=== PATIENT | female | born 1950 | race Caucasian/White ===

== ENCOUNTER 2019-02-08 17:18 | Inpatient (IN) ==
--- NOTE | 2019-02-08 17:40 | Emergency Department Note ---
Disposition Clinical Impression: Tremor due to substance abuse Alcohol withdrawal syndrome Qualifiers: Complication of substance-induced condition: uncomplicated Qualified Code(s): F10.230 - Alcohol dependence with withdrawal, uncomplicated Alcoholic intoxication Qualifiers: Complication of substance-induced condition: uncomplicated Qualified Code(s): F10.920 - Alcohol use, unspecified with intoxication, uncomplicated Disposition: Admitted As Inpatient Condition: Fair Instructions: Alcohol Withdrawal (ED) Referrals: NONE,PCP [Primary Care Provider] - Forms: ED Satisfaction Letter Time of Disposition: 21:20 Alcohol HPI - General Chief Complaint: ED Alcohol Abuse Stated Complaint: etoh/detox Time Seen by Provider: 02/08/19 17:35 Source: patient - History of Present Illness HPI Narrative: Patient is a 69 year old F with pmhx of anxiety presents with c/o etoh withdrawal. patient states she shaking and the shaking has been going on for a few months, but recently gotten worse. Patient states she recently had 2 falls, one wednesday night and one Wednesday morning. Patient states she initially was unable to get up on her own, and had to wait until she had the strength to get up her own. She denies hitting head, but hit her hips and elbows. On both occassions she felt wobbly and weak and fell. Patient currently drinks 2 bottles of wine per day and was drunk on both occasions. She states Wednesday her significant worse and has gotten worse daily. Her daughter made her a doctor's appointment to see her doctor today, which is to see her doctor she told her to come to the ED. Patient states her shaking gets better when she keeps drinking. Four years ago she started to drink heavily prior to her passing away. Her last drink was 2pm today, she has had 5-6 glasses of wine already. Patient has been prescribed medication for headaches and anxiety but admits to frequently forgetting to take her medications. She states that about 2 weeks ago she stopped trying to take her medications. Patient also admits to coughing on occasion, nausea without vomiting, and diarrhea every other day. Patient denies fever, chills, abdominal pain, hemoptysis, hematochezia, or hematuria. Last Drink: hours (ago) Alcohol Type: Wine Chronic Alcohol Use: Yes - Related Data Home Medications Medication Instructions Recorded Confirmed Citalopram [CeleXA] 20 mg PO DAILY 02/08/19 02/08/19 Furosemide [Lasix] 20 mg PO DAILY PRN 02/08/19 02/08/19 Gabapentin [Neurontin] 300 mg PO TID 02/08/19 02/08/19 Ondansetron ODT [Zofran ODT] 4 mg SL Q6HR PRN 02/08/19 02/08/19 Topiramate [Topamax] 25 mg PO HS 02/08/19 02/08/19 traZODone [TraZODone] 50 mg PO HS 02/08/19 02/08/19 Allergies Allergy/AdvReac Type Severity Reaction Status Date / Time No Known Allergies Allergy Verified 02/08/19 17:21 Review of Systems: Constitutional: Denies Fever, Chills, , Dizziness admits Headache Respiratory: Denies Shortness of breath, Chronic cough, hemoptysis, Dyspnea at rest, or activity Cardiovascular: Denies Chest pain, Syncope, palpitations, admits Peripheral edema Gastrointestinal: Denies hematochezia, Abdominal pain, vomiting, admits nausea Genitourinary: Denies Painful urination, hematuria, urinary retention Endocrine: denies unintentional Significant weight changes Skin: Denies rashes, or unexplained bruising Past Medical History - Past Medical History Surgical history: Reports: orthopedic, other (screw in left ankle ), other (gastric bypass) Psychiatric history: Reports: anxiety, depression 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 Head: atraumatic, normocephalic. ENT: no oropharyngeal erythema, nares patent, mucous membranes moist, Neck: No thyromegaly appreciated. Neck supple no cervical lymphadenopathy. Resp: CTAB, no wheezing, rhonchi, or rhales. CV: RRR, Normal S1 and S2. No murmur, gallops, or rubs. GI/Abdominal exam: bowel sounds throughout, soft, non-tender, non- distended; no hepatosplenomegaly Skin: intact; no rashes, lesions, or bruising. Ext: No cyanosis +1 pitting edema LE b/l. pulses +2/4 bilaterally UE and LE. Neuro: no focal deficits, cooperative with exam, tremor increased with finger to nose test. mild resting tremor. strength 5/5 UE and LE b/l. sensation intact UE and LE b/l. Course Vital Signs Temperature 98.7 F 02/08/19 17:21 Pulse Rate 95 02/08/19 17:21 Respiratory Rate 20 02/08/19 17:21 Blood Pressure 120/71 02/08/19 17:21 O2 Sat by Pulse Oximetry 94 02/08/19 17:21 Temperature 98.7 F 02/08/19 18:49 Pulse Rate 96 02/08/19 20:25 Respiratory Rate 24 02/08/19 20:25 Blood Pressure 116/82 02/08/19 20:25 O2 Sat by Pulse Oximetry 95 02/08/19 20:25 Oxygen Delivery Oxygen Delivery Room Air Alcohol - MDM Narrative Medical decision making narrative: Patient is a 69-year-old female with history of EtOH abuse who presents today in alcohol withdrawal. Patient drinks 2 bottles of wine per day. She states her last drink was 2 PM today. She admits to recent falls, unsteadiness on her feet, weakness, decreased appetite, and tremors. After speaking with social work patient's PCP works in [facility] which has a substance abuse program. Patient has agreed to enroll in substance abuse program. Patient was given thiamine, and folic acid in the ED, IV fluids and placed on CIWA protocol. She has already been given 1 dose of Ativan for her alcohol withdrawal symptoms. Patient has been admitted for falls, unsteady gait due to EtOH intoxication and EtOH withdrawal. - Differential Diagnosis Differential Diagnosis: Likely: metabolic abnormality, alcohol withdrawal syndrome - Medical Records Medical records reviewed: Yes I reviewed the patient's medical records. - Lab Data Lab results reviewed: Yes I reviewed the patient's lab results. Result diagrams: 02/08/19 17:47 02/08/19 17:47 Lab Results 02/08/19 02/08/19 02/08/19 Range/Units 17:47 17:47 17:47 WBC 8.4 (4.3-11.1) K/mcL RBC 4.20 (3.82-4.97) M/mcL Hgb 13.6 (11.5-15.4) g/dL Hct 40.9 (35.3-44.9) % MCV 97.4 (83.0-100.0) fL MCH 32.4 (28.0-33.3) pg MCHC 33.3 (31.6-35.5) g/dL RDW 14.1 (11.5-14.5) % Plt Count 155 (140-400) K/mcL MPV 11.5 (9.4-12.4) fL Immature Gran % 1.9 (0-4) % Seg Neutrophils % 69.0 % Lymphocytes % 14.6 % Monocytes % 13.4 % Eosinophils % 0.4 % Basophils % 0.7 % Neutrophils # 5.8 (1.6-8.9) K/mcL Lymphocytes # 1.2 (0.6-4.6) K/mcL Monocytes # 1.1 (0.0-1.3) K/mcL Eosinophils # 0.0 (0.0-0.6) K/mcL Basophils # 0.1 (0.0-0.2) K/mcL PT 11.9 (9.4-12.1) Seconds INR 1.0 VBG pH (7.32-7.42) pH Units VBG pCO2 (41-51) mmHg VBG pO2 (25-50) mmHg VBG HCO3 (21-27) mEq/L Sodium 129 L (136-145) mEq/L Potassium 4.8 (3.5-5.1) mEq/L Chloride 93 L (98-107) mEq/L Carbon Dioxide 24 (23-29) mEq/L BUN 9 (8-23) mg/dL Creatinine 0.82 (0.60-1.20) mg/dL Est GFR ( Amer) > 60 (> 60) Est GFR (Non-Af Amer) > 60 (> 60) BUN/Creatinine Ratio 11 (6-26) Glucose 99 (70-105) mg/dL Calculated Osmolality 267 L (280-300) Calcium 8.5 L (8.6-10.3) mg/dL Magnesium 1.9 (1.6-2.6) mg/dL Total Bilirubin 1.8 H (0.3-1.0) mg/dL Direct Bilirubin 1.1 H (0.0-0.2) mg/dL Indirect Bilirubin 0.7 (0.0-1.2) mg/dL AST 327 H (13-39) Units/L ALT 157 H (7-52) Units/L Alkaline Phosphatase 561 H (34-104) Units/L Serum Total Protein 5.9 L (6.4-8.9) g/dL Albumin 3.1 L (3.5-5.7) g/dL Globulin 2.8 (2.4-3.5) g/dL Albumin/Globulin Ratio 1.1 (1.1-2.2) Beta-Hydroxybutyric Acd (0.02-0.27) mmol/L Ethyl Alcohol 78 H (Less than 10) mg/dL 02/08/19 02/08/19 Range/Units 17:47 18:03 WBC (4.3-11.1) K/mcL RBC (3.82-4.97) M/mcL Hgb (11.5-15.4) g/dL Hct (35.3-44.9) % MCV (83.0-100.0) fL MCH (28.0-33.3) pg MCHC (31.6-35.5) g/dL RDW (11.5-14.5) % Plt Count (140-400) K/mcL MPV (9.4-12.4) fL Immature Gran % (0-4) % Seg Neutrophils % % Lymphocytes % % Monocytes % % Eosinophils % % Basophils % % Neutrophils # (1.6-8.9) K/mcL Lymphocytes # (0.6-4.6) K/mcL Monocytes # (0.0-1.3) K/mcL Eosinophils # (0.0-0.6) K/mcL Basophils # (0.0-0.2) K/mcL PT (9.4-12.1) Seconds INR VBG pH 7.39 (7.32-7.42) pH Units VBG pCO2 38 L (41-51) mmHg VBG pO2 42 (25-50) mmHg VBG HCO3 23 (21-27) mEq/L Sodium (136-145) mEq/L Potassium (3.5-5.1) mEq/L Chloride (98-107) mEq/L Carbon Dioxide (23-29) mEq/L BUN (8-23) mg/dL Creatinine (0.60-1.20) mg/dL Est GFR ( Amer) (> 60) Est GFR (Non-Af Amer) (> 60) BUN/Creatinine Ratio (6-26) Glucose (70-105) mg/dL Calculated Osmolality (280-300) Calcium (8.6-10.3) mg/dL Magnesium (1.6-2.6) mg/dL Total Bilirubin (0.3-1.0) mg/dL Direct Bilirubin (0.0-0.2) mg/dL Indirect Bilirubin (0.0-1.2) mg/dL AST (13-39) Units/L ALT (7-52) Units/L Alkaline Phosphatase (34-104) Units/L Serum Total Protein (6.4-8.9) g/dL Albumin (3.5-5.7) g/dL Globulin (2.4-3.5) g/dL Albumin/Globulin Ratio (1.1-2.2) Beta-Hydroxybutyric Acd 0.26 (0.02-0.27) mmol/L Ethyl Alcohol (Less than 10) mg/dL - EKG Data EKG attestation: Yes I reviewed and interpreted this EKG. Attestation Statement - Attestation Attestation: I have seen this patient with the resident physician, I have personally evaluated this patient. I had reviewed the chart and document dictation by the resident physician and aM in agreement with the information documented by the resident physician. Please see documentation by the resident physician for complete chart including past medical history, family medical history, review of systems, current history and physical and laboratory and imaging studies. I was present for all procedures, provided direct supervision for all procedures, was present for the entirety of all procedures and provided direct guidance during the procedures. Please see documentation by the resident physic adrian for any procedures performed. I have reviewed all interpretations of EKGs, and reviewed all EKGs performed on patient's as well. I have also reviewed reports of imaging as provided by radiology. Patient presents to the emergency department with chief complaint of alcohol withdrawal and wanting detox. She is here because her family came to check on her and convinced her that she should be off alcohol. She drinks continuously throughout the day. She eats food every other day. She has never had a withdrawal seizure but states that if she stops drinking she becomes shaky in within a few hours. But she states she has not stop drinking ever for over 4 years. She is trying to get into a rehabilitation facility but has to be detoxed first before they will accept her primary care help try to arrange a detox facility. Upon arrival she has no vital sign suggestive of withdrawal she is however tremulous. She reports she has not drink alcohol about 3 hours. Physical examination is otherwise nonfocal, no confabulation, cranial nerves are intact lungs are clear heart is regular abdomen is soft and nontender there is no significant jaundice no petechiae of the skin. No focal neurologic findings. Full nontender range of motion of her neck. No thyromegaly. Basic laboratory studies demonstrated evidence of chronic alcohol abuse, mildly elevated bilirubin and elevated alkaline phosphorus mildly elevated transaminases. No evidence to suggest acute anemia or renal failure however she was hyponatremic at 129. Alkaline was 78. A CIWA scale was performed which was 9 which is borderline for requiring Ativan this increased up to 10-11 during her stay and she was given Ativan she was given IV fluids we also replaced thiamine and folic acid. She had a CT scan of her head to rule out intracranial hemorrhage because there was report of falls while intoxicated that showed no acute abnormality. Patient was admitted to the hospital for further evaluation and management of alcohol withdrawal.
[2019-02-08 18:04] LABS: Basophils # 0.1 K/mcL (0.0-0.2); Basophils % 0.7 %; Eosinophils % 0.4 %; Hematocrit 40.9 % (35.3-44.9); Hemoglobin 13.6 g/dL (11.5-15.4); Immature Granulocytes % 1.9 % (0-4); Lymphocytes # 1.2 K/mcL (0.6-4.6); Lymphocytes % 14.6 %; Mean Corpuscular HGB Conc 33.3 g/dL (31.6-35.5); Mean Corpuscular Hemoglobin 32.4 pg (28.0-33.3); Mean Corpuscular Volume 97.4 fL (83.0-100.0); Mean Platelet Volume 11.5 fL (9.4-12.4); Monocytes # 1.1 K/mcL (0.0-1.3); Monocytes % 13.4 %; Neutrophils # 5.8 K/mcL (1.6-8.9); Platelet Count 155 K/mcL (140-400); Red Cell Distribution Width 14.1 % (11.5-14.5); White Blood Count 8.4 K/mcL (4.3-11.1)
[2019-02-08 18:05] LABS: VBG HCO3 23 mEq/L (21-27); VBG PCO2 38 mmHg (41-51); VBG PH 7.39 pH Units (7.32-7.42); VBG PO2 42 mmHg (25-50)
[2019-02-08 18:11] LABS: Prothrombin Time 11.9 Seconds (9.4-12.1)
[2019-02-08 18:23] LABS: Alanine Aminotransferase 157 Units/L (7-52); Albumin 3.1 g/dL (3.5-5.7); Albumin/Globulin Ratio 1.1 (1.1-2.2); Alkaline Phosphatase 561 Units/L (34-104); Aspartate Amino Transferase 327 Units/L (13-39); BUN/Creatinine Ratio 11 (6-26); Bilirubin,Direct 1.1 mg/dL (0.0-0.2); Bilirubin,Indirect 0.7 mg/dL (0.0-1.2); Bilirubin,Total 1.8 mg/dL (0.3-1.0); Blood Urea Nitrogen 9 mg/dL (8-23); Calcium 8.5 mg/dL (8.6-10.3); Carbon Dioxide 24 mEq/L (23-29); Chloride 93 mEq/L (98-107); Ethanol 78 mg/dL (Less than 10); Globulin 2.8 g/dL (2.4-3.5); Glucose 99 mg/dL (70-105); Magnesium 1.9 mg/dL (1.6-2.6); Osmolality,Calculated 267 (280-300); Potassium 4.8 mEq/L (3.5-5.1); Sodium 129 mEq/L (136-145); Total Protein 5.9 g/dL (6.4-8.9); eGFR For African Americans > 60 (> 60); eGFR For Non-African Americans > 60 (> 60)
[2019-02-08] MEDS ORDERED: 0.9 % Sodium Chloride 1,000 ML IVC ONE (18:57)
[2019-02-08] MEDS ORDERED: Thiamine (B-1) 100 MG in 0.9 % Sodium Chloride 50 ML IVPB ONE (19:10)
[2019-02-08] MEDS ORDERED: Cyanocobalamin (B-12) 1,000 MCG TABLET PO ONE (19:30)
[2019-02-08] MEDS ORDERED: Folic Acid 1 MG TABLET PO STA (19:57)
[2019-02-08] MEDS ORDERED: *HR* LORazepam 2 MG/ML VIAL IVP ONE (20:27)
[2019-02-08] MEDS ORDERED: *HR* LORazepam 2 MG/ML VIAL IVP PRN (21:57)
[2019-02-08] MEDS ORDERED: *HR* Promethazine 25 MG/ML VIAL IVP PRN (21:57)
[2019-02-08] MEDS ORDERED: Ondansetron ODT 4 MG TAB.RAPDIS SL PRN (22:01)
--- NOTE | 2019-02-08 22:53 | Internal Med History&Physical ---
Date of Encounter: 02/08/19 Time of Encounter: 22:52 Internal Medicine - H&P: HPI Chief complaint: tremor Admitted From: Home Plans for Post Hospital Care: Home History of present illness: Bob Vazquez is a 69-year-old woman with depression and alcohol abuse who says in the last 3 years she has increased her drinking because her and became overly depressed. She says that she drinks 1-2 bottles of wine daily and frequently drinks in the morning or at any time she feels shaky. She says of recent she has been falling and has been very unsteady because of her intoxicated state and following withdrawal episodes. She told her daughter about this issue and her wanting to go to the emergency room but the daughter advised her not to bother her because she typically resolves it with another drink of alcohol. The patient then went to an outpatient provider who saw her and advised she come to the ER for assessment. In the ER she has been clinically stable but is notably shaky. Her last drink of alcohol was at 2 PM and alcohol blood testing tonight was elevated at 78. She was given 1 mg of lorazepam, a liter of fluids and a head CT was done which showed no acute abnormalities. Lab work remarkable for AST 327 and AST 157 with an alkaline phosphatase of 561. She is admitted for further care. She tells me she lives alone at home and used to work as an property management accountant. Family history is remarkable for a son with alcoholism as well. Vitals: Reviewed General: Well-developed woman lying in bed in no acute distress but notably tremulous. Skin: Warm and dry. HEENT: Moist mucous membranes. No conjunctivae pallor. Mild scleral icterus. Neck: No lymphadenopathy. No JVD. No carotid bruits. No palpable thyroid. Chest: Normal thoracic expansion. Normal breath sounds. Clear to auscultation. Heart: Normal S1 & S2; rhythmic. No rubs or murmurs. Abdomen: Non-distended, soft and non-tender to palpation. No peritoneal reaction. Extremities: No clubbing, cyanosis or edema. No calf tenderness. Normal distal pulses. Neurological: Awake, alert and oriented to person, place and time. No focal deficits. Psych: Affect appropriate. Assessment/Plan 1. Alcohol withdrawal: We will place on seizure, fall, aspiration precautions in addition to CIWA protocol to be followed. We will start chlordiazepoxide 50 mg by mouth over the course of 24 hours to keep her stable with lorazepam to be given as needed. Mineral/vitamin supplementation to be given by mouth which can be changed to IV if not tolerated. 2. Electrolyte imbalance: As evidenced by hyponatremia and hypochloremia likely secondary to alcohol intake and poor nutrition. Volume resuscitation with normal saline and will be rechecked. 3. Abnormal LFTs: The dissociation is typical for alcohol abuse. No clinical signs of alcoholic hepatitis however. I will order hepatitis viral panel and a liver ultrasound for evaluation. Monitor trend of LFTs. 4. Mood disorder: Continue citalopram and trazodone. Past Med Surg Social Fam HX - Past Medical History Medical history: arthritis, other Additional medical history: water retention, alcoholism Psychiatric history: anxiety, depression - Past Surgical History Surgical History: orthopedic, other (screw in left ankle ), other (gastric bypass) Additional surgical history: foot, gastric bypass, collar cone, elbow - Social History Smoking Status: Never smoker Alcohol use: heavy, recent Drug use: none Internal Medicine - H&P: Meds Citalopram [CeleXA] 20 mg PO DAILY 02/08/19 [History] Furosemide [Lasix] 20 mg PO DAILY PRN 02/08/19 [History] Gabapentin [Neurontin] 300 mg PO TID 02/08/19 [History] Ondansetron ODT [Zofran ODT] 4 mg SL Q6HR PRN 02/08/19 [History] Topiramate [Topamax] 25 mg PO HS 02/08/19 [History] traZODone [TraZODone] 50 mg PO HS 02/08/19 [History] Allergy/AdvReac Type Severity Reaction Status Date / Time No Known Allergies Allergy Verified 02/08/19 17:21 All Systems PM: A 10-system review of systems was performed and is negative for pertinent findings except as documented above in the HPI. - Constitutional Vitals: Temp Pulse Resp BP Pulse Ox 98.7 F 101 24 113/63 96 02/08/19 18:49 02/08/19 22:45 02/08/19 22:45 02/08/19 22:45 02/08/19 22:45 Exam: . Internal Med - H&P Results - Labs CBC & Chem 7: 02/08/19 17:47 02/08/19 17:47 Labs: Short CBC 02/08/19 Range/Units 17:47 WBC 8.4 (4.3-11.1) K/mcL Hgb 13.6 (11.5-15.4) g/dL Hct 40.9 (35.3-44.9) % Plt Count 155 (140-400) K/mcL Neutrophils # 5.8 (1.6-8.9) K/mcL BMP 02/08/19 17:47 Sodium 129 L Potassium 4.8 Chloride 93 L Carbon Dioxide 24 BUN 9 Creatinine 0.82 Glucose 99 Calcium 8.5 L Liver Function 02/08/19 Range/Units 17:47 Total Bilirubin 1.8 H (0.3-1.0) mg/dL Direct Bilirubin 1.1 H (0.0-0.2) mg/dL AST 327 H (13-39) Units/L ALT 157 H (7-52) Units/L Alkaline Phosphatase 561 H (34-104) Units/L Albumin 3.1 L (3.5-5.7) g/dL - ABG Interpretation ABG results: 02/08/19 18:03 VBG pH 7.39 VBG pCO2 38 L VBG pO2 42 VBG HCO3 23 - Impressions ITS Impressions Head CT 02/08/19 19:32 IMPRESSION: No acute intracranial abnormality. D/ / Elías Hanson MD / Elías Hanson MD Interpreting Provider: Elías Hanson MD - Time Spent With Patient Total time spent is greater than 50% in coordination of care (as documented) at patient's floor/unit and/or counseling patient:
[2019-02-08] MEDS: Topiramate 25 MG TABLET PO SCH (23:52)
[2019-02-08] MEDS: traZODone 50 MG TABLET PO SCH (23:52)
[2019-02-08] MEDS: 0.9 % Sodium Chloride 1,000 ML IVC SCH (23:53)
[2019-02-09] MEDS: 0.9 % Sodium Chloride 1,000 ML IVC SCH (05:31)
[2019-02-09 05:51] LABS: BUN/Creatinine Ratio 12 (6-26); Blood Urea Nitrogen 9 mg/dL (8-23); Calcium 7.8 mg/dL (8.6-10.3); Carbon Dioxide 27 mEq/L (23-29); Chloride 100 mEq/L (98-107); Glucose 94 mg/dL (70-105); Magnesium 1.8 mg/dL (1.6-2.6); Osmolality,Calculated 276 (280-300); Phosphorous 2.5 mg/dL (2.7-4.5); Potassium 4.7 mEq/L (3.5-5.1); Sodium 134 mEq/L (136-145); eGFR For African Americans > 60 (> 60); eGFR For Non-African Americans > 60 (> 60)
[2019-02-09 05:52] LABS: Albumin 2.6 g/dL (3.5-5.7); Albumin/Globulin Ratio 1.1 (1.1-2.2); Bilirubin,Direct 1.4 mg/dL (0.0-0.2); Bilirubin,Total 2.4 mg/dL (0.3-1.0); Globulin 2.3 g/dL (2.4-3.5); Total Protein 4.9 g/dL (6.4-8.9)
[2019-02-09 06:38] LABS: Hepatitis B Surface Antigen Nonreactive (Nonreactive)
[2019-02-09 07:07] LABS: Hepatitis A Antibody IgM Nonreactive (Nonreactive); Hepatitis B Core IgM Nonreactive (Nonreactive); Hepatitis C Virus Antibody Nonreactive (Nonreactive)
[2019-02-09 08:43] LABS: VBG Ionized Calcium 1.13 mmol/L (1.15-1.35)
[2019-02-09] MEDS: Folic Acid 1 MG TABLET PO SCH (09:40)
[2019-02-09] MEDS: Thiamine (B-1) 100 MG TABLET PO SCH (09:40)
[2019-02-09] MEDS: Vitamin B Complex/Vit C/Vit E 1 EACH TABLET PO SCH (09:40)
[2019-02-09] MEDS: Gabapentin 300 MG CAPSULE PO SCH ×3 (09:40→21:52)
[2019-02-09] MEDS ORDERED: *HR* LORazepam 2 MG/ML VIAL IVP PRN ×3 (09:55)
[2019-02-09] MEDS ORDERED: Calcium Gluconate 1gm/50mL 1 GM/50 ML BAG IVPB ONE (11:00)
[2019-02-09] MEDS: Ibuprofen 600 MG TABLET PO PRN (11:33)
--- NOTE | 2019-02-09 14:29 | Internal Med Progress Note ---
Hospitalist Progress Note - Encounter Date of Encounter: 02/09/19 Time of Encounter: 14:28 - Subjective Interval History: Patient seen and examined. No acute events overnight. Patient still has tremor. No scoring on CIWA as of yet. Patient denies dyspnea, chest pain. - Exam Vitals: Temp Pulse Resp BP Pulse Ox 98.7 F 82 16 133/85 96 02/09/19 12:02/09/19 12:02/09/19 12:02/09/19 12:02/09/19 12:26 Exam: Vitals: Reviewed General: Well-developed woman lying in bed in no acute distress but notably tremulous. Skin: Warm and dry. HEENT: Moist mucous membranes. No conjunctivae pallor. Mild scleral icterus. Neck: No lymphadenopathy. No JVD. No carotid bruits. No palpable thyroid. Chest: Normal thoracic expansion. Normal breath sounds. Clear to auscultation. Heart: Normal S1 & S2; rhythmic. No rubs or murmurs. Abdomen: Non-distended, soft and non-tender to palpation. No peritoneal reaction. Extremities: No clubbing, cyanosis or edema. No calf tenderness. Normal distal pulses. Neurological: generalized tremor present not associated with movement or rest Psych: Affect appropriate - Assessment and Plan (1) Alcohol withdrawal syndrome Current Visit: Yes Status: Acute Assessment and Plan: Significant outpatient alcohol use; high risk for withdrawal Patient currently with tremor Plan: CIWA; monitor for signs of alcohol withdrawal; d/c librium (2) Hypocalcemia Current Visit: Yes Status: Acute Assessment and Plan: Ionized Ca low on admission likely due to poor nutrition Replace and monitor (3) Hypophosphatemia Current Visit: Yes Status: Acute Assessment and Plan: Low on admission likely 2/2 poor nutrition Replace and monitor (4) Malnutrition Current Visit: Yes Status: Acute Assessment and Plan: Likely contributing to above electrolyte disturbances Consult dietary (5) Mood disorder Current Visit: Yes Status: Acute Assessment and Plan: continue patients citalopram and trazodone (6) Abnormal LFTs Current Visit: Yes Status: Acute Assessment and Plan: Elevated LFTs typical for alcohol abuse Hepatitis panel negative Plan: liver ultrasound trend LFTs - Time Spent with Patient Total time spent is greater than 50% in coordination of care (as documented) at patient's floor/unit and/or counseling patient: 35 minutes Plan of Care Discussed with: patient Internal Medicine: Result - Labs CBC & Chem 7: 02/08/19 17:47 02/09/19 04:19 Labs: Short CBC 02/08/19 Range/Units 17:47 WBC 8.4 (4.3-11.1) K/mcL Hgb 13.6 (11.5-15.4) g/dL Hct 40.9 (35.3-44.9) % Plt Count 155 (140-400) K/mcL Neutrophils # 5.8 (1.6-8.9) K/mcL BMP 02/08/19 02/09/19 17:47 04:19 Sodium 129 L 134 L Potassium 4.8 4.7 Chloride 93 L 100 Carbon Dioxide 24 27 BUN 9 9 Creatinine 0.82 0.76 Glucose 99 94 Calcium 8.5 L 7.8 L Liver Function 02/08/19 02/09/19 Range/Units 17:47 04:19 Total Bilirubin 1.8 H 2.4 H (0.3-1.0) mg/dL Direct Bilirubin 1.1 H 1.4 H (0.0-0.2) mg/dL AST 327 H 231 H (13-39) Units/L ALT 157 H 121 H (7-52) Units/L Alkaline Phosphatase 561 H 447 H (34-104) Units/L Albumin 3.1 L 2.6 L (3.5-5.7) g/dL - ABG Interpretation ABG results: PT/INR, D-dimer PT 11.9 Seconds (9.4-12.1) 02/08/19 17:47 - Impressions Impressions Head CT 02/08/19 19:32 IMPRESSION: No acute intracranial abnormality. D/ / Elías Hanson MD / Elías Hanson MD Interpreting Provider: Elías Hanson MD Liver Ultrasound 02/09/19 09:33 IMPRESSION: 1. Hepatic steatosis. 2. Gallbladder is not visualized. D/ / Felicia Foster MD / Felicia Foster MD Interpreting Provider: Felicia Foster MD Consult Discharge Plan - Plan Referrals: NONE,PCP [Primary Care Provider] - (1) Alcohol withdrawal syndrome Qualifiers: Complication of substance-induced condition: uncomplicated Qualified Code(s): F10.230 - Alcohol dependence with withdrawal, uncomplicated
[2019-02-09] MEDS: traZODone 50 MG TABLET PO SCH (21:52)
[2019-02-09] MEDS: Topiramate 25 MG TABLET PO SCH (21:52)
[2019-02-10 02:11] LABS: Hematocrit 35.5 % (35.3-44.9); Mean Corpuscular HGB Conc 32.4 g/dL (31.6-35.5); Mean Corpuscular Hemoglobin 32.7 pg (28.0-33.3); Mean Corpuscular Volume 100.9 fL (83.0-100.0); Mean Platelet Volume 11.9 fL (9.4-12.4); Platelet Count 105 K/mcL (140-400); Red Blood Count 3.52 M/mcL (3.82-4.97); Red Cell Distribution Width 14.6 % (11.5-14.5); White Blood Count 7.2 K/mcL (4.3-11.1)
[2019-02-10 02:12] LABS: Hemoglobin 11.5 g/dL (11.5-15.4)
[2019-02-10 02:15] LABS: VBG Ionized Calcium 1.16 mmol/L (1.15-1.35)
[2019-02-10 02:35] LABS: Alanine Aminotransferase 114 Units/L (7-52); Albumin 2.5 g/dL (3.5-5.7); Albumin/Globulin Ratio 1.1 (1.1-2.2); Alkaline Phosphatase 428 Units/L (34-104); Aspartate Amino Transferase 210 Units/L (13-39); BUN/Creatinine Ratio 15 (6-26); Bilirubin,Total 2.4 mg/dL (0.3-1.0); Blood Urea Nitrogen 12 mg/dL (8-23); Calcium 8.2 mg/dL (8.6-10.3); Carbon Dioxide 25 mEq/L (23-29); Chloride 104 mEq/L (98-107); Globulin 2.3 g/dL (2.4-3.5); Glucose 92 mg/dL (70-105); Osmolality,Calculated 279 (280-300); Phosphorous 2.8 mg/dL (2.7-4.5); Potassium 4.1 mEq/L (3.5-5.1); Sodium 135 mEq/L (136-145); Total Protein 4.8 g/dL (6.4-8.9); eGFR For African Americans > 60 (> 60); eGFR For Non-African Americans > 60 (> 60)
[2019-02-10] MEDS: *HR* Enoxaparin 40 MG/0.4 ML SYRINGE SQ SCH (05:47)
[2019-02-10] MEDS: Folic Acid 1 MG TABLET PO SCH (07:31)
[2019-02-10] MEDS: Thiamine (B-1) 100 MG TABLET PO SCH (07:31)
[2019-02-10] MEDS: Gabapentin 300 MG CAPSULE PO SCH ×3 (07:31→20:48)
[2019-02-10] MEDS: Vitamin B Complex/Vit C/Vit E 1 EACH TABLET PO SCH (07:31)
--- NOTE | 2019-02-10 17:26 | Internal Med Progress Note ---
Hospitalist Progress Note - Encounter Date of Encounter: 02/10/19 Time of Encounter: 17:24 - Subjective Interval History: No acute events overnight. Patient stats she feels well. Has not scored on CIWA so far this admission. - Exam Vitals: Temp Pulse Resp BP Pulse Ox 98.1 F 85 16 129/82 96 02/10/19 16:25 02/10/19 16:25 02/10/19 16:25 02/10/19 16:25 02/10/19 16:25 Exam: Vitals: Reviewed General: Well-developed woman lying in bed in no acute distress but notably tremulous. Skin: Warm and dry. HEENT: Moist mucous membranes. No conjunctivae pallor. Mild scleral icterus. Neck: No lymphadenopathy. No JVD. No carotid bruits. No palpable thyroid. Chest: Normal thoracic expansion. Normal breath sounds. Clear to auscultation. Heart: Normal S1 & S2; rhythmic. No rubs or murmurs. Abdomen: Non-distended, soft and non-tender to palpation. No peritoneal reaction. Extremities: No clubbing, cyanosis or edema. No calf tenderness. Normal distal pulses. Neurological: generalized tremor present not associated with movement or rest Psych: Affect appropriate - Assessment and Plan (1) Alcohol withdrawal syndrome Current Visit: Yes Status: Acute Assessment and Plan: Significant outpatient alcohol use; high risk for withdrawal Patient currently with tremor No PRN benzos yet Plan: CIWA; monitor for signs of alcohol withdrawal (2) Hypocalcemia Current Visit: Yes Status: Resolved Assessment and Plan: Low on admission likely 2/2 poor nutrition Resolved Monitor (3) Hypophosphatemia Current Visit: Yes Status: Resolved Assessment and Plan: Low on admission likely 2/2 poor nutrition Resolved Monitor (4) Malnutrition Current Visit: Yes Status: Acute Assessment and Plan: Likely contributing to above electrolyte disturbances Consult dietary (5) Mood disorder Current Visit: Yes Status: Acute Assessment and Plan: continue patients citalopram and trazodone (6) Abnormal LFTs Current Visit: Yes Status: Acute Assessment and Plan: Elevated LFTs typical for alcohol abuse Hepatitis panel negative Plan: liver ultrasound trend LFTs - Time Spent with Patient Total time spent is greater than 50% in coordination of care (as documented) at patient's floor/unit and/or counseling patient: 30 minutes Internal Medicine: Result - Labs CBC & Chem 7: 02/10/19 01:56 02/10/19 01:56 Labs: Short CBC 02/10/19 Range/Units 01:56 WBC 7.2 (4.3-11.1) K/mcL Hgb 11.5 D (11.5-15.4) g/dL Hct 35.5 (35.3-44.9) % Plt Count 105 L (140-400) K/mcL BMP 02/10/19 01:56 Sodium 135 L Potassium 4.1 Chloride 104 Carbon Dioxide 25 BUN 12 Creatinine 0.81 Glucose 92 Calcium 8.2 L Liver Function 02/10/19 Range/Units 01:56 Total Bilirubin 2.4 H (0.3-1.0) mg/dL AST 210 H (13-39) Units/L ALT 114 H (7-52) Units/L Alkaline Phosphatase 428 H (34-104) Units/L Albumin 2.5 L (3.5-5.7) g/dL - ABG Interpretation ABG results: PT/INR, D-dimer PT 11.9 Seconds (9.4-12.1) 02/08/19 17:47 Consult Discharge Plan - Plan Referrals: NONE,PCP [Primary Care Provider] - (1) Alcohol withdrawal syndrome Qualifiers: Complication of substance-induced condition: uncomplicated Qualified Code(s): F10.230 - Alcohol dependence with withdrawal, uncomplicated (4) Malnutrition Qualifiers: Malnutrition type: protein-calorie malnutrition Protein-calorie malnutrition severity: severe Qualified Code(s): E43 - Unspecified severe protein-calorie malnutrition
[2019-02-10] MEDS: Ibuprofen 600 MG TABLET PO PRN (17:59)
[2019-02-10] MEDS: traZODone 50 MG TABLET PO SCH (20:48)
[2019-02-10] MEDS: Topiramate 25 MG TABLET PO SCH (20:48)
[2019-02-11] MEDS: *HR* Enoxaparin 40 MG/0.4 ML SYRINGE SQ SCH (05:19)
[2019-02-11 05:47] LABS: Hematocrit 40.8 % (35.3-44.9); Mean Corpuscular HGB Conc 31.9 g/dL (31.6-35.5); Mean Corpuscular Hemoglobin 32.7 pg (28.0-33.3); Mean Corpuscular Volume 102.5 fL (83.0-100.0); Platelet Count 109 K/mcL (140-400); Red Blood Count 3.98 M/mcL (3.82-4.97); Red Cell Distribution Width 14.7 % (11.5-14.5); White Blood Count 6.5 K/mcL (4.3-11.1)
[2019-02-11 05:49] LABS: VBG Ionized Calcium 1.25 mmol/L (1.15-1.35)
[2019-02-11 06:05] LABS: Alanine Aminotransferase 115 Units/L (7-52); Albumin 2.8 g/dL (3.5-5.7); Albumin/Globulin Ratio 1.1 (1.1-2.2); Alkaline Phosphatase 425 Units/L (34-104); Aspartate Amino Transferase 200 Units/L (13-39); BUN/Creatinine Ratio 14 (6-26); Bilirubin,Total 2.4 mg/dL (0.3-1.0); Blood Urea Nitrogen 11 mg/dL (8-23); Calcium 8.6 mg/dL (8.6-10.3); Carbon Dioxide 27 mEq/L (23-29); Chloride 107 mEq/L (98-107); Globulin 2.6 g/dL (2.4-3.5); Glucose 94 mg/dL (70-105); Osmolality,Calculated 289 (280-300); Potassium 3.6 mEq/L (3.5-5.1); Sodium 140 mEq/L (136-145); Total Protein 5.4 g/dL (6.4-8.9); eGFR For African Americans > 60 (> 60); eGFR For Non-African Americans > 60 (> 60)
[2019-02-11 06:50] VITALS: BP 135/81
[2019-02-11] MEDS: Gabapentin 300 MG CAPSULE PO SCH (08:03)
[2019-02-11] MEDS: Thiamine (B-1) 100 MG TABLET PO SCH (08:03)
[2019-02-11] MEDS: Folic Acid 1 MG TABLET PO SCH (08:03)
[2019-02-11] MEDS: Vitamin B Complex/Vit C/Vit E 1 EACH TABLET PO SCH (08:03)
--- NOTE | 2019-02-11 09:49 | Discharge Summary ---
- NOTES TO OUTPATIENT PROVIDER Notes to Outpatient Provider: Patient may need assistance arranging outpatient alcohol rehab Date of Encounter: 02/11/19 Time of Encounter: 09:47 - Discharge Diagnosis (1) Alcohol withdrawal syndrome Priority: Primary Status: Acute Qualifiers: Complication of substance-induced condition: uncomplicated Qualified Code(s): F10.230 - Alcohol dependence with withdrawal, uncomplicated (2) Hypocalcemia Priority: Secondary Status: Resolved (3) Hypophosphatemia Priority: Secondary Status: Resolved (4) Malnutrition Priority: Secondary Status: Acute Qualifiers: Malnutrition type: protein-calorie malnutrition Protein-calorie malnutrition severity: severe Qualified Code(s): E43 - Unspecified severe protein-calorie malnutrition (5) Mood disorder Priority: Secondary Status: Acute (6) Abnormal LFTs Priority: Secondary Status: Acute Hospital course: Ms. Vazquez is a 69 year old female with PMH Of mood disorder and alcohol abuse. Patient presented to the ED intoxicated and shaking. Patient has strong history of 2-3 bottles of wine daily for the past 3 years since her . Patient notes that when she does not drink, she shakes. During admission, patient was given single dose of ativan in ED and one dose of librium on the floor. She was placed on CIWA protocol but did not require any PRN doses of ativan. Her vital signs remained stable. After 3 nights of monitoring, patient did not show any signs of withdrawal. She continue to have tremor but all vital signs were stable. Patient may have essential tremor, although she denies any family history of tremor. She declined inpatient drug rehab opting for outpatient rehab instead. Patient was ambulatory but felt she was a little weak from being in bed for so many days. Patient was clinically stable on day of discharge. Home health was ordered for evaluation of needs. OP physician will need to determine if patient has essential tremor and whether she would benefit from treatment. She was provided info for outpatient rehab and may require assistance arranging this. Discharge discussed with: patient - Time Spent with Patient Total time spent providing and/or coordinating discharge services: 35 minutes - Discharge Medications Prescriptions: New Gabapentin [Neurontin] 300 mg PO TID capsule Continued Ondansetron ODT [Zofran ODT] 4 mg SL Q6HR PRN PRN Reason: Nausea traZODone [TraZODone] 50 mg PO HS PRN PRN Reason: Sleep Topiramate [Topamax] 25 mg PO HS Furosemide [Lasix] 20 mg PO DAILY PRN PRN Reason: Edema Citalopram [CeleXA] 20 mg PO DAILY Cholecalciferol (Vitamin D3) [Vitamin D3] 1,000 units PO DAILY Cyanocobalamin (Vitamin B-12) [Vitamin B-12] 1,000 mcg PO DAILY Gabapentin [Neurontin] 300 mg PO TID Multivitamin [Daily Multiple Vitamin] 1 tab PO DAILY Home Medications: Citalopram [CeleXA] 20 mg PO DAILY 02/08/19 [History] Furosemide [Lasix] 20 mg PO DAILY PRN 02/08/19 [History] Ondansetron ODT [Zofran ODT] 4 mg SL Q6HR PRN 02/08/19 [History] Topiramate [Topamax] 25 mg PO HS 02/08/19 [History] traZODone [TraZODone] 50 mg PO HS PRN 02/08/19 [History] Cholecalciferol (Vitamin D3) [Vitamin D3] 1,000 units PO DAILY 02/09/19 [History] Cyanocobalamin (Vitamin B-12) [Vitamin B-12] 1,000 mcg PO DAILY 02/09/19 [History] Gabapentin [Neurontin] 300 mg PO TID 02/09/19 [History] Multivitamin [Daily Multiple Vitamin] 1 tab PO DAILY 02/09/19 [History] Gabapentin [Neurontin] 300 mg PO TID capsule 02/11/19 [Rx] Allergies/Adverse Reactions: Allergy/AdvReac Type Severity Reaction Status Date / Time No Known Allergies Allergy Verified 02/09/19 22:22 Date of admission: 02/09/19 15:50 Primary care physician: PCP NONE Consults: 02/08/19 21:57 Consult to [employer] Tender [CONS] Routine Reason for SW Consult: depression and alcohol abuse 02/09/19 14:50 Consult to Nutrition [CONS] Routine Comment: Consulting Provider: NUTRITION Reason for Dietary Consult: Diet Education Discharging clinician: Lillie Olmos Anticipated date of discharge: 02/11/19 - Constitutional Vitals: Temp Pulse Resp BP Pulse Ox 98.7 F 67 18 135/81 96 02/11/19 06:45 02/11/19 06:45 02/11/19 06:45 02/11/19 06:45 02/11/19 06:45 General appearance: Present: A&O X 3, no acute distress, answers questions appropriately Exam: Vitals: Reviewed General: Well-developed woman lying in bed in no acute distress but notably tremulous. Skin: Warm and dry. HEENT: Moist mucous membranes. No conjunctivae pallor. Mild scleral icterus. Neck: No lymphadenopathy. No JVD. No carotid bruits. No palpable thyroid. Chest: Normal thoracic expansion. Normal breath sounds. Clear to auscultation. Heart: Normal S1 & S2; rhythmic. No rubs or murmurs. Abdomen: Non-distended, soft and non-tender to palpation. No peritoneal reaction. Extremities: No clubbing, cyanosis or edema. No calf tenderness. Normal distal pulses. Neurological: generalized tremor present not associated with movement or rest Psych: Affect appropriate - Patient Status Disposition: Home Health Service Condition: Good Functional capacity at discharge: uses cane/walker Overall status at discharge: patient is back to baseline - Discharge Instructions Follow Up With: NONE,PCP [Primary Care Provider] - - Diet and Activity Activity: resume usual activities as tolerated Diet: advance to your usual diet
--- NOTE | 2019-02-11 09:56 | Physician Discharge Referral ---
Home Health/Hosp Referral Info Transfer to: Home Health Provider in Charge Post Discharge: PCP - Diagnosis (1) Alcohol withdrawal syndrome Priority: Primary Status: Resolved (2) Hypocalcemia Priority: Secondary Status: Resolved (3) Hypophosphatemia Priority: Secondary Status: Resolved (4) Malnutrition Priority: Secondary Status: Acute (5) Mood disorder Priority: Secondary Status: Chronic (6) Abnormal LFTs Priority: Secondary Status: Acute - Respiratory Orders Smoking Cessation: Smoking cessation has been advised. For more information, call the [place] Tobacco Quit Line at 7-518-FCQI-NOW. - Diet/Nutrition Diet/Nutrition Orders: Regular - Activity Activity Orders: Up ad ramiro - Services Needed Following services are medically necessary services: Nursing, Physical Therapy, Occupational Therapy - Transfer Medications Home Medications: Citalopram [CeleXA] 20 mg PO DAILY 02/08/19 [History] Furosemide [Lasix] 20 mg PO DAILY PRN 02/08/19 [History] Ondansetron ODT [Zofran ODT] 4 mg SL Q6HR PRN 02/08/19 [History] Topiramate [Topamax] 25 mg PO HS 02/08/19 [History] traZODone [TraZODone] 50 mg PO HS PRN 02/08/19 [History] Cholecalciferol (Vitamin D3) [Vitamin D3] 1,000 units PO DAILY 02/09/19 [History] Cyanocobalamin (Vitamin B-12) [Vitamin B-12] 1,000 mcg PO DAILY 02/09/19 [History] Gabapentin [Neurontin] 300 mg PO TID 02/09/19 [History] Multivitamin [Daily Multiple Vitamin] 1 tab PO DAILY 02/09/19 [History] Gabapentin [Neurontin] 300 mg PO TID capsule 02/11/19 [Rx] Allergies/Adverse Reactions: Allergy/AdvReac Type Severity Reaction Status Date / Time No Known Allergies Allergy Verified 02/09/19 22:22 Certification: Further, I certify that my clinical findings support that this patient is homebound (i.e. absences from home require considerable and taxing effort and are for medical reasons or hoahaoism services or infrequently or short duration when for other reasons) because: Homebound Reason: Leaving home requires considerable and taxing effort due to condition Attestation: My signature below is to certify that this patient is under my care and that I, or nurse practitioner, or a physician's acute care assistant working with me, has a [id number] encounter with this patient.
== END 2019-02-11 11:40 | disposition home health service (06) | DRG 896 ==
LOC: EMEROOARM 17:18 → 2ANU 17:18 → SUATTDRO 22:36 → 2ANU 22:55
PROVIDERS: ADMIT Internal Medicine; ATTEND Family Medicine

== ENCOUNTER 2019-03-23 16:20 | Inpatient (IN) ==
[2019-03-23] MEDS ORDERED: Isovue-370 500 ML BOTTLE IVP ONE (17:09)
[2019-03-23 17:36] LABS: Basophils # 0.1 K/mcL (0.0-0.2); Basophils % 0.5 %; Eosinophils # 0.2 K/mcL (0.0-0.6); Eosinophils % 0.6 %; Hematocrit 32.5 % (35.3-44.9); Hemoglobin 11.4 g/dL (11.5-15.4); Immature Granulocytes % 4.2 % (0-4); Lymphocytes # 2.1 K/mcL (0.6-4.6); Lymphocytes % 8.6 %; Mean Corpuscular HGB Conc 35.1 g/dL (31.6-35.5); Mean Corpuscular Hemoglobin 36.2 pg (28.0-33.3); Mean Corpuscular Volume 103.2 fL (83.0-100.0); Mean Platelet Volume 12.3 fL (9.4-12.4); Monocytes # 1.7 K/mcL (0.0-1.3); Monocytes % 7.1 %; Platelet Count 283 K/mcL (140-400); Red Blood Count 3.15 M/mcL (3.82-4.97); Red Cell Distribution Width 16.6 % (11.5-14.5); White Blood Count 24.1 K/mcL (4.3-11.1)
[2019-03-23 17:44] LABS: INR 1.6
[2019-03-23 17:57] LABS: Alanine Aminotransferase 51 Units/L (7-52); Albumin 2.4 g/dL (3.5-5.7); Albumin/Globulin Ratio 0.8 (1.1-2.2); Alkaline Phosphatase 434 Units/L (34-104); Aspartate Amino Transferase 157 Units/L (13-39); BUN/Creatinine Ratio 14 (6-26); Bilirubin,Direct 5.6 mg/dL (0.0-0.2); Bilirubin,Indirect 3.8 mg/dL (0.0-1.0); Bilirubin,Total 9.4 mg/dL (0.3-1.0); Blood Urea Nitrogen 21 mg/dL (8-23); Carbon Dioxide 26 mEq/L (23-29); Chloride 90 mEq/L (98-107); Ethanol < 10 mg/dL (Less than 10); Globulin 2.9 g/dL (2.4-3.5); Glucose 89 mg/dL (70-105); Osmolality,Calculated 264 (280-300); Potassium 4.5 mEq/L (3.5-5.1); Sodium 126 mEq/L (136-145); Total Protein 5.3 g/dL (6.4-8.9); eGFR For African Americans 43 (> 60); eGFR For Non-African Americans 36 (> 60)
[2019-03-23 19:59] LABS: Bilirubin,Urine Large (Negative); Blood,Urine Negative (Negative); Clarity,Urine Cloudy (Clear); Color,Urine Orange (Yellow); Glucose,Urine (UA) Normal (Normal); Ketones,Urine Negative (Negative); Leukocyte Esterase,Urine Moderate (Negative); Nitrite,Urine Positive (Negative); PH,Urine 5.5 pH Units (5.0-8.0); Protein,Urine Negative (Neg-Trace); Specific Gravity,Urine 1.018 (1.010-1.025); Urobilinogen,Urine >=8.0 mg/dL (Normal)
[2019-03-23 20:01] LABS: Bacteria,Urine Many per hpf (None-Few); Hyaline Casts,Urine None Seen per lpf (None-Few); Squamous Epithelial Cell,Urine Many per lpf (None-Few); WBC,Urine 50-100 per hpf (0-3)
[2019-03-23 20:05] LABS: Amphetamine Screen,Urine Negative ng/mL (Cutoff=1000); Barbiturate Screen,Urine Negative ng/mL (Cutoff=200); Benzodiazepines Screen,Urine Negative ng/mL (Cutoff=200); Cannabinoid Screen,Urine Negative ng/mL (Cutoff = 50); Cocaine Screen,Urine Negative ng/mL (Cutoff= 300); Opiate Screen,Urine Negative ng/mL (Cutoff=300); Phencyclidine Screen,Urine Negative ng/mL (Cutoff=25)
[2019-03-23 20:16] LABS: Amorphous Sediment,Urine Few (Few)
[2019-03-23] MEDS ORDERED: 0.9 % Sodium Chloride 500 ML IVC ONE ×2 (20:17→20:30)
[2019-03-23] MEDS ORDERED: cefTRIAXone 1,000 MG in Water for inj. (sterile) 10 ML IVP ONE (21:26)
[2019-03-23] MEDS ORDERED: traZODone 50 MG TABLET PO PRN (21:53)
[2019-03-23] MEDS ORDERED: Ondansetron ODT 4 MG TAB.RAPDIS SL PRN (21:53)
[2019-03-23] MEDS ORDERED: Ondansetron 4 MG/2 ML VIAL IVP PRN (21:57)
[2019-03-23] MEDS: Topiramate 25 MG TABLET PO SCH (22:38)
[2019-03-23] MEDS: Albumin 25% 25gram/100mL 25 GM/100 ML IV.SOLN IVPB SCH (22:38)
[2019-03-23] MEDS: *HR* Heparin 5,000 UNIT/ML VIAL SQ SCH (22:38)
[2019-03-23] MEDS: rOPINIRole 0.25 MG TABLET PO SCH (22:38)
[2019-03-23] MEDS ORDERED: *HR* LORazepam 2 MG/ML VIAL IVP PRN ×3 (22:47)
[2019-03-23] MEDS ORDERED: *HR* Promethazine 25 MG/ML VIAL IVP PRN (22:47)
[2019-03-24] MEDS: Albumin 25% 25gram/100mL 25 GM/100 ML IV.SOLN IVPB SCH (00:21)
[2019-03-24] MEDS: *HR* Heparin 5,000 UNIT/ML VIAL SQ SCH ×3 (05:37→22:28)
[2019-03-24 06:29] LABS: Basophils # 0.1 K/mcL (0.0-0.2); Basophils % 0.5 %; Eosinophils # 0.2 K/mcL (0.0-0.6); Eosinophils % 1.4 %; Hematocrit 25.8 % (35.3-44.9); Immature Granulocytes % 3.1 % (0-4); Lymphocytes # 0.9 K/mcL (0.6-4.6); Lymphocytes % 6.4 %; Mean Corpuscular HGB Conc 34.1 g/dL (31.6-35.5); Mean Corpuscular Hemoglobin 36.1 pg (28.0-33.3); Mean Corpuscular Volume 105.7 fL (83.0-100.0); Mean Platelet Volume 12.1 fL (9.4-12.4); Monocytes % 6.7 %; Platelet Count 166 K/mcL (140-400); Red Blood Count 2.44 M/mcL (3.82-4.97); Red Cell Distribution Width 16.7 % (11.5-14.5); Segmented Neutrophils % 81.9 %; White Blood Count 14.7 K/mcL (4.3-11.1)
[2019-03-24 06:32] LABS: Hemoglobin 8.8 g/dL (11.5-15.4)
[2019-03-24 06:50] LABS: Alanine Aminotransferase 34 Units/L (7-52); Albumin 2.7 g/dL (3.5-5.7); Albumin/Globulin Ratio 1.4 (1.1-2.2); Alkaline Phosphatase 286 Units/L (34-104); Aspartate Amino Transferase 114 Units/L (13-39); BUN/Creatinine Ratio 15 (6-26); Bilirubin,Direct 5.3 mg/dL (0.0-0.2); Bilirubin,Total 8.3 mg/dL (0.3-1.0); Blood Urea Nitrogen 19 mg/dL (8-23); Calcium 7.9 mg/dL (8.6-10.3); Carbon Dioxide 28 mEq/L (23-29); Chloride 95 mEq/L (98-107); Globulin 1.9 g/dL (2.4-3.5); Glucose 99 mg/dL (70-105); Magnesium 2.5 mg/dL (1.6-2.6); Osmolality,Calculated 274 (280-300); Phosphorous 3.7 mg/dL (2.7-4.5); Potassium 4.3 mEq/L (3.5-5.1); Sodium 131 mEq/L (136-145); Total Protein 4.6 g/dL (6.4-8.9); eGFR For African Americans 49 (> 60); eGFR For Non-African Americans 41 (> 60)
[2019-03-24] MEDS: Thiamine (B-1) 100 MG TABLET PO SCH (08:24)
[2019-03-24] MEDS: Gabapentin 300 MG CAPSULE PO SCH ×3 (08:24→22:28)
[2019-03-24] MEDS: Vitamin B Complex/Vit C/Vit E 1 EACH TABLET PO SCH (08:24)
[2019-03-24] MEDS: rOPINIRole 0.25 MG TABLET PO SCH ×3 (08:24→22:33)
[2019-03-24] MEDS: Folic Acid 1 MG TABLET PO SCH (08:24)
[2019-03-24] MEDS ORDERED: Gadolinium Contrast Agent (WT Based) IV PRN (11:15)
[2019-03-24] MEDS ORDERED: Furosemide 20 MG/2 ML VIAL IVP ONE (13:20)
[2019-03-24] MEDS ORDERED: Albumin 25% 25gram/100mL 25 GM/100 ML IV.SOLN IVPB ONE (13:21)
[2019-03-24 13:57] LABS: Iron 53 mcg/dL (50-170); Transferrin < 75 mg/dL (203-362)
[2019-03-24] MEDS: cefTRIAXone 1,000 MG in Water for inj. (sterile) 10 ML IVP SCH (14:22)
[2019-03-24] MEDS: Lactulose Oral Soln 20 GM/30 ML UDC PO SCH ×2 (14:23→22:28)
[2019-03-24] MEDS: Topiramate 25 MG TABLET PO SCH (22:33)
[2019-03-25] MEDS: *HR* Heparin 5,000 UNIT/ML VIAL SQ SCH ×3 (06:14→19:57)
[2019-03-25] MEDS ORDERED: traMADol 50 MG TABLET PO ONE (06:41)
[2019-03-25 07:03] LABS: Hematocrit 26.4 % (35.3-44.9); Hemoglobin 8.5 g/dL (11.5-15.4); Mean Corpuscular HGB Conc 32.2 g/dL (31.6-35.5); Mean Corpuscular Hemoglobin 35.6 pg (28.0-33.3); Mean Corpuscular Volume 110.5 fL (83.0-100.0); Mean Platelet Volume 12.3 fL (9.4-12.4); Platelet Count 152 K/mcL (140-400); Red Blood Count 2.39 M/mcL (3.82-4.97); Red Cell Distribution Width 16.3 % (11.5-14.5); White Blood Count 13.3 K/mcL (4.3-11.1)
[2019-03-25 07:20] LABS: Albumin 2.7 g/dL (3.5-5.7); Albumin/Globulin Ratio 1.4 (1.1-2.2); Bilirubin,Total 7.9 mg/dL (0.3-1.0); Calcium 8.1 mg/dL (8.6-10.3); Globulin 1.9 g/dL (2.4-3.5); Potassium 3.9 mEq/L (3.5-5.1); Total Protein 4.6 g/dL (6.4-8.9)
[2019-03-25 07:44] LABS: Folate 19.8 ng/mL (3.0-16.0)
[2019-03-25] MEDS ORDERED: *HR* OxyCODONE Immed Rel 5 MG TABLET PO PRN (10:09)
[2019-03-25] MEDS ORDERED: Albumin 25% 25gram/100mL 25 GM/100 ML IV.SOLN IVPB ONE ×3 (10:53→23:36)
[2019-03-25] MEDS: Gabapentin 300 MG CAPSULE PO SCH ×3 (10:59→19:40)
[2019-03-25] MEDS: Thiamine (B-1) 100 MG TABLET PO SCH (11:00)
[2019-03-25] MEDS: rOPINIRole 0.25 MG TABLET PO SCH ×3 (11:00→19:40)
[2019-03-25] MEDS: cefTRIAXone 1,000 MG in Water for inj. (sterile) 10 ML IVP SCH (11:00)
[2019-03-25] MEDS: Lactulose Oral Soln 20 GM/30 ML UDC PO SCH ×3 (11:00→19:40)
[2019-03-25] MEDS: Vitamin B Complex/Vit C/Vit E 1 EACH TABLET PO SCH (11:00)
[2019-03-25] MEDS: Folic Acid 1 MG TABLET PO SCH (11:00)
[2019-03-25] MEDS: Furosemide 20 MG/2 ML VIAL IVP SCH ×2 (12:58→19:57)
[2019-03-25] MEDS: Topiramate 25 MG TABLET PO SCH (19:40)
[2019-03-25] MEDS ORDERED: Albumin 25% 25gram/100mL 25 GM/100 ML IV.SOLN ONE (23:56)
[2019-03-26 04:50] LABS: Hemoglobin 8.4 g/dL (11.5-15.4); Mean Corpuscular HGB Conc 33.6 g/dL (31.6-35.5); Mean Corpuscular Hemoglobin 35.9 pg (28.0-33.3); Mean Corpuscular Volume 106.8 fL (83.0-100.0); Mean Platelet Volume 12.3 fL (9.4-12.4); Platelet Count 155 K/mcL (140-400); Red Blood Count 2.34 M/mcL (3.82-4.97); Red Cell Distribution Width 16.2 % (11.5-14.5); White Blood Count 12.4 K/mcL (4.3-11.1)
[2019-03-26 05:08] LABS: Albumin/Globulin Ratio 1.6 (1.1-2.2); Bilirubin,Total 6.8 mg/dL (0.3-1.0); Calcium 8.2 mg/dL (8.6-10.3); Globulin 1.9 g/dL (2.4-3.5); Potassium 3.8 mEq/L (3.5-5.1); Total Protein 4.9 g/dL (6.4-8.9)
[2019-03-26] MEDS: *HR* Heparin 5,000 UNIT/ML VIAL SQ SCH ×3 (05:30→20:53)
[2019-03-26 08:52] LABS: AFP Tumor Marker Non-Pregnant 3 ng/mL (0-9); Cancer Antigen-GI (CA 19-9) 2 U/mL (0-37)
[2019-03-26] MEDS: rOPINIRole 0.25 MG TABLET PO SCH ×3 (09:07→20:48)
[2019-03-26] MEDS: Gabapentin 300 MG CAPSULE PO SCH ×3 (09:07→20:48)
[2019-03-26] MEDS: Vitamin B Complex/Vit C/Vit E 1 EACH TABLET PO SCH (09:07)
[2019-03-26] MEDS: Thiamine (B-1) 100 MG TABLET PO SCH (09:07)
[2019-03-26] MEDS: Furosemide 20 MG/2 ML VIAL IVP SCH ×2 (09:08→20:48)
[2019-03-26] MEDS: Lactulose Oral Soln 20 GM/30 ML UDC PO SCH ×3 (09:08→20:48)
[2019-03-26] MEDS: Folic Acid 1 MG TABLET PO SCH (09:08)
[2019-03-26] MEDS: cefTRIAXone 1,000 MG in Water for inj. (sterile) 10 ML IVP SCH (09:08)
[2019-03-26] MEDS ORDERED: Albumin 25% 25gram/100mL 25 GM/100 ML IV.SOLN IVPB ONE (20:20)
[2019-03-26] MEDS: Topiramate 25 MG TABLET PO SCH (20:49)
[2019-03-27 04:56] LABS: Basophils # 0.1 K/mcL (0.0-0.2); Basophils % 0.7 %; Eosinophils # 0.2 K/mcL (0.0-0.6); Eosinophils % 1.3 %; Hematocrit 25.6 % (35.3-44.9); Hemoglobin 8.9 g/dL (11.5-15.4); Immature Granulocytes % 2.1 % (0-4); Lymphocytes # 1.1 K/mcL (0.6-4.6); Lymphocytes % 8.2 %; Mean Corpuscular HGB Conc 34.8 g/dL (31.6-35.5); Mean Corpuscular Hemoglobin 36.8 pg (28.0-33.3); Mean Corpuscular Volume 105.8 fL (83.0-100.0); Monocytes # 0.8 K/mcL (0.0-1.3); Monocytes % 6.6 %; Neutrophils # 10.3 K/mcL (1.6-8.9); Platelet Count 147 K/mcL (140-400); Red Blood Count 2.42 M/mcL (3.82-4.97); Red Cell Distribution Width 15.7 % (11.5-14.5); Segmented Neutrophils % 81.1 %; White Blood Count 12.7 K/mcL (4.3-11.1)
[2019-03-27] MEDS: *HR* Heparin 5,000 UNIT/ML VIAL SQ SCH ×3 (05:16→20:07)
[2019-03-27 05:18] LABS: Alanine Aminotransferase 31 Units/L (7-52); Albumin 3.1 g/dL (3.5-5.7); Albumin/Globulin Ratio 1.7 (1.1-2.2); Alkaline Phosphatase 221 Units/L (34-104); Aspartate Amino Transferase 120 Units/L (13-39); BUN/Creatinine Ratio 17 (6-26); Bilirubin,Total 6.6 mg/dL (0.3-1.0); Blood Urea Nitrogen 17 mg/dL (8-23); Calcium 8.5 mg/dL (8.6-10.3); Carbon Dioxide 28 mEq/L (23-29); Chloride 99 mEq/L (98-107); Globulin 1.8 g/dL (2.4-3.5); Glucose 91 mg/dL (70-105); Osmolality,Calculated 277 (280-300); Potassium 3.6 mEq/L (3.5-5.1); Sodium 133 mEq/L (136-145); Total Protein 4.9 g/dL (6.4-8.9); eGFR For African Americans > 60 (> 60); eGFR For Non-African Americans 55 (> 60)
[2019-03-27] MEDS: Lactulose Oral Soln 20 GM/30 ML UDC PO SCH ×3 (08:19→20:07)
[2019-03-27] MEDS: Gabapentin 300 MG CAPSULE PO SCH ×3 (08:19→20:06)
[2019-03-27] MEDS: Folic Acid 1 MG TABLET PO SCH (08:19)
[2019-03-27] MEDS: Cholecalciferol (D-3) 1,000 UNIT (25MCG) TABLET PO SCH (08:19)
[2019-03-27] MEDS: Vitamin B Complex/Vit C/Vit E 1 EACH TABLET PO SCH (08:19)
[2019-03-27] MEDS: rOPINIRole 0.25 MG TABLET PO SCH ×3 (08:19→20:06)
[2019-03-27] MEDS: Thiamine (B-1) 100 MG TABLET PO SCH (08:19)
[2019-03-27] MEDS: cefTRIAXone 1,000 MG in Water for inj. (sterile) 10 ML IVP SCH (08:20)
[2019-03-27] MEDS: Furosemide 20 MG/2 ML VIAL IVP SCH (08:20)
[2019-03-27] MEDS: Topiramate 25 MG TABLET PO SCH (20:07)
[2019-03-28 05:46] LABS: Basophils # 0.1 K/mcL (0.0-0.2); Basophils % 0.5 %; Eosinophils # 0.2 K/mcL (0.0-0.6); Eosinophils % 1.2 %; Hematocrit 28.5 % (35.3-44.9); Hemoglobin 9.3 g/dL (11.5-15.4); Immature Granulocytes % 1.7 % (0-4); Lymphocytes # 1.3 K/mcL (0.6-4.6); Lymphocytes % 9.7 %; Mean Corpuscular HGB Conc 32.6 g/dL (31.6-35.5); Mean Corpuscular Hemoglobin 35.5 pg (28.0-33.3); Mean Corpuscular Volume 108.8 fL (83.0-100.0); Mean Platelet Volume 12.3 fL (9.4-12.4); Monocytes % 7.4 %; Neutrophils # 10.5 K/mcL (1.6-8.9); Platelet Count 151 K/mcL (140-400); Red Blood Count 2.62 M/mcL (3.82-4.97); Red Cell Distribution Width 15.6 % (11.5-14.5); Segmented Neutrophils % 79.5 %; White Blood Count 13.2 K/mcL (4.3-11.1)
[2019-03-28] MEDS: *HR* Heparin 5,000 UNIT/ML VIAL SQ SCH ×3 (05:51→21:54)
[2019-03-28 06:01] LABS: Alanine Aminotransferase 32 Units/L (7-52); Albumin 2.7 g/dL (3.5-5.7); Albumin/Globulin Ratio 1.4 (1.1-2.2); Alkaline Phosphatase 222 Units/L (34-104); Aspartate Amino Transferase 121 Units/L (13-39); BUN/Creatinine Ratio 19 (6-26); Bilirubin,Total 6.1 mg/dL (0.3-1.0); Blood Urea Nitrogen 17 mg/dL (8-23); Calcium 8.4 mg/dL (8.6-10.3); Carbon Dioxide 27 mEq/L (23-29); Chloride 99 mEq/L (98-107); Globulin 1.9 g/dL (2.4-3.5); Glucose 85 mg/dL (70-105); Osmolality,Calculated 283 (280-300); Potassium 3.6 mEq/L (3.5-5.1); Sodium 136 mEq/L (136-145); Total Protein 4.6 g/dL (6.4-8.9); eGFR For African Americans > 60 (> 60); eGFR For Non-African Americans > 60 (> 60)
[2019-03-28] MEDS: rOPINIRole 0.25 MG TABLET PO SCH ×3 (07:52→21:53)
[2019-03-28] MEDS: Cholecalciferol (D-3) 1,000 UNIT (25MCG) TABLET PO SCH (07:52)
[2019-03-28] MEDS: Lactulose Oral Soln 20 GM/30 ML UDC PO SCH ×4 (07:52→21:53)
[2019-03-28] MEDS: Vitamin B Complex/Vit C/Vit E 1 EACH TABLET PO SCH (07:52)
[2019-03-28] MEDS: Thiamine (B-1) 100 MG TABLET PO SCH (07:52)
[2019-03-28] MEDS: Gabapentin 300 MG CAPSULE PO SCH (07:52)
[2019-03-28] MEDS: Folic Acid 1 MG TABLET PO SCH (07:52)
[2019-03-28] MEDS: Furosemide 20 MG/2 ML VIAL IVP SCH (07:53)
[2019-03-28] MEDS: cefTRIAXone 1,000 MG in Water for inj. (sterile) 10 ML IVP SCH (07:53)
[2019-03-28] MEDS: Topiramate 25 MG TABLET PO SCH (21:54)
[2019-03-29] MEDS: *HR* Heparin 5,000 UNIT/ML VIAL SQ SCH ×3 (05:35→21:28)
[2019-03-29 06:48] LABS: BUN/Creatinine Ratio 16 (6-26); Blood Urea Nitrogen 17 mg/dL (8-23); Calcium 8.5 mg/dL (8.6-10.3); Carbon Dioxide 29 mEq/L (23-29); Chloride 99 mEq/L (98-107); Glucose 98 mg/dL (70-105); Osmolality,Calculated 286 (280-300); Potassium 3.5 mEq/L (3.5-5.1); Sodium 137 mEq/L (136-145); eGFR For African Americans > 60 (> 60); eGFR For Non-African Americans 50 (> 60)
[2019-03-29 06:50] LABS: Basophils # 0.1 K/mcL (0.0-0.2); Basophils % 0.6 %; Eosinophils # 0.2 K/mcL (0.0-0.6); Eosinophils % 1.3 %; Hematocrit 31.9 % (35.3-44.9); Hemoglobin 10.1 g/dL (11.5-15.4); Immature Granulocytes % 1.4 % (0-4); Lymphocytes # 1.4 K/mcL (0.6-4.6); Lymphocytes % 11.1 %; Mean Corpuscular HGB Conc 31.7 g/dL (31.6-35.5); Mean Corpuscular Hemoglobin 34.8 pg (28.0-33.3); Mean Platelet Volume 12.1 fL (9.4-12.4); Monocytes # 0.9 K/mcL (0.0-1.3); Monocytes % 6.6 %; Neutrophils # 10.2 K/mcL (1.6-8.9); Platelet Count 158 K/mcL (140-400); Red Cell Distribution Width 15.3 % (11.5-14.5); White Blood Count 12.9 K/mcL (4.3-11.1)
[2019-03-29] MEDS: Furosemide 20 MG/2 ML VIAL IVP SCH (08:52)
[2019-03-29] MEDS: Gabapentin 300 MG CAPSULE PO SCH (08:52)
[2019-03-29] MEDS: Vitamin B Complex/Vit C/Vit E 1 EACH TABLET PO SCH (08:52)
[2019-03-29] MEDS: Cholecalciferol (D-3) 1,000 UNIT (25MCG) TABLET PO SCH (08:52)
[2019-03-29] MEDS: Lactulose Oral Soln 20 GM/30 ML UDC PO SCH ×4 (08:52→21:27)
[2019-03-29] MEDS: Folic Acid 1 MG TABLET PO SCH (08:52)
[2019-03-29] MEDS: Thiamine (B-1) 100 MG TABLET PO SCH (08:52)
[2019-03-29] MEDS: rOPINIRole 0.25 MG TABLET PO SCH ×3 (08:52→21:27)
[2019-03-29] MEDS: Piperacillin/Tazobactam 3.375 GM in 0.9 % Sodium Chloride Mini Bag 100 ML IVPB SCH (16:12)
[2019-03-29] MEDS: Topiramate 25 MG TABLET PO SCH (21:27)
[2019-03-30] MEDS: Piperacillin/Tazobactam 3.375 GM in 0.9 % Sodium Chloride Mini Bag 100 ML IVPB SCH ×3 (00:06→16:30)
[2019-03-30 05:50] LABS: Basophils # 0.1 K/mcL (0.0-0.2); Basophils % 0.8 %; Eosinophils # 0.2 K/mcL (0.0-0.6); Eosinophils % 1.6 %; Hematocrit 28.9 % (35.3-44.9); Hemoglobin 9.7 g/dL (11.5-15.4); Immature Granulocytes % 1.5 % (0-4); Lymphocytes # 1.3 K/mcL (0.6-4.6); Lymphocytes % 10.4 %; Mean Corpuscular HGB Conc 33.6 g/dL (31.6-35.5); Mean Corpuscular Hemoglobin 35.8 pg (28.0-33.3); Mean Corpuscular Volume 106.6 fL (83.0-100.0); Mean Platelet Volume 11.9 fL (9.4-12.4); Monocytes # 0.9 K/mcL (0.0-1.3); Monocytes % 6.9 %; Neutrophils # 10.1 K/mcL (1.6-8.9); Platelet Count 145 K/mcL (140-400); Red Blood Count 2.71 M/mcL (3.82-4.97); Segmented Neutrophils % 78.8 %; White Blood Count 12.8 K/mcL (4.3-11.1)
[2019-03-30 05:56] LABS: INR 1.9; Prothrombin Time 22.1 Seconds (9.4-12.1)
[2019-03-30 06:11] LABS: Albumin 2.5 g/dL (3.5-5.7); Albumin/Globulin Ratio 1.3 (1.1-2.2); Bilirubin,Total 5.2 mg/dL (0.3-1.0); Calcium 8.2 mg/dL (8.6-10.3); Globulin 1.9 g/dL (2.4-3.5); Potassium 3.3 mEq/L (3.5-5.1); Total Protein 4.4 g/dL (6.4-8.9)
[2019-03-30] MEDS: *HR* Heparin 5,000 UNIT/ML VIAL SQ SCH ×3 (06:39→21:06)
[2019-03-30] MEDS ORDERED: Potassium Chloride Elixir 20 MEQ/15 ML UDC PO ONE (07:45)
[2019-03-30] MEDS: rOPINIRole 0.25 MG TABLET PO SCH ×3 (09:30→21:05)
[2019-03-30] MEDS: Thiamine (B-1) 100 MG TABLET PO SCH (09:30)
[2019-03-30] MEDS: Vitamin B Complex/Vit C/Vit E 1 EACH TABLET PO SCH (09:30)
[2019-03-30] MEDS: Cholecalciferol (D-3) 1,000 UNIT (25MCG) TABLET PO SCH (09:30)
[2019-03-30] MEDS: Lactulose Oral Soln 20 GM/30 ML UDC PO SCH ×4 (09:31→21:05)
[2019-03-30] MEDS: Gabapentin 300 MG CAPSULE PO SCH (09:31)
[2019-03-30] MEDS: Folic Acid 1 MG TABLET PO SCH (09:31)
[2019-03-30] MEDS: Furosemide 20 MG/2 ML VIAL IVP SCH ×2 (12:43→12:45)
[2019-03-30] MEDS ORDERED: E-Z-HD (BARIUM SULF) SUSPENSION PO ONE (14:35)
[2019-03-30] MEDS ORDERED: E-Z-PAQUE (BARIUM SULF) SUSP 1 BOTTLE PO ONE (14:35)
[2019-03-30] MEDS: Topiramate 25 MG TABLET PO SCH (21:05)
[2019-03-31] MEDS: Piperacillin/Tazobactam 3.375 GM in 0.9 % Sodium Chloride Mini Bag 100 ML IVPB SCH ×3 (00:54→16:39)
[2019-03-31 05:27] LABS: Basophils # 0.1 K/mcL (0.0-0.2); Basophils % 0.6 %; Eosinophils # 0.3 K/mcL (0.0-0.6); Eosinophils % 1.9 %; Hematocrit 29.4 % (35.3-44.9); Hemoglobin 9.4 g/dL (11.5-15.4); Immature Granulocytes % 1.4 % (0-4); Lymphocytes # 1.6 K/mcL (0.6-4.6); Lymphocytes % 12.5 %; Mean Corpuscular Hemoglobin 35.6 pg (28.0-33.3); Mean Corpuscular Volume 111.4 fL (83.0-100.0); Mean Platelet Volume 12.3 fL (9.4-12.4); Monocytes # 0.8 K/mcL (0.0-1.3); Monocytes % 6.1 %; Platelet Count 145 K/mcL (140-400); Red Blood Count 2.64 M/mcL (3.82-4.97); Red Cell Distribution Width 14.9 % (11.5-14.5); Segmented Neutrophils % 77.5 %
[2019-03-31 05:32] LABS: Neutrophils # 10.1 K/mcL (1.6-8.9)
[2019-03-31 05:53] LABS: Albumin 2.5 g/dL (3.5-5.7); Albumin/Globulin Ratio 1.3 (1.1-2.2); Bilirubin,Total 5.2 mg/dL (0.3-1.0); Calcium 8.3 mg/dL (8.6-10.3); Magnesium 2.1 mg/dL (1.6-2.6); Potassium 3.2 mEq/L (3.5-5.1); Total Protein 4.5 g/dL (6.4-8.9)
[2019-03-31 05:54] LABS: Macrocytosis Present (Not Present); Platelet Estimate Decreased (Normal)
[2019-03-31] MEDS: *HR* Heparin 5,000 UNIT/ML VIAL SQ SCH ×3 (06:12→21:31)
[2019-03-31] MEDS: Vitamin B Complex/Vit C/Vit E 1 EACH TABLET PO SCH (07:52)
[2019-03-31] MEDS: Cholecalciferol (D-3) 1,000 UNIT (25MCG) TABLET PO SCH (07:52)
[2019-03-31] MEDS: Lactulose Oral Soln 20 GM/30 ML UDC PO SCH ×2 (07:52→21:31)
[2019-03-31] MEDS: rOPINIRole 0.25 MG TABLET PO SCH ×3 (07:52→21:31)
[2019-03-31] MEDS: Folic Acid 1 MG TABLET PO SCH (07:52)
[2019-03-31] MEDS: Thiamine (B-1) 100 MG TABLET PO SCH (07:52)
[2019-03-31] MEDS: Gabapentin 300 MG CAPSULE PO SCH (07:52)
[2019-03-31] MEDS ORDERED: Furosemide 20 MG/2 ML VIAL IVP SCH (09:00)
[2019-03-31] MEDS ORDERED: Potassium Chloride Elixir 20 MEQ/15 ML UDC PO ONE ×2 (09:23→17:00)
[2019-03-31] MEDS: Topiramate 25 MG TABLET PO SCH (21:31)
[2019-04-01] MEDS: Piperacillin/Tazobactam 3.375 GM in 0.9 % Sodium Chloride Mini Bag 100 ML IVPB SCH (00:24)
[2019-04-01 01:40] LABS: Calcium 8.2 mg/dL (8.6-10.3); Potassium 3.5 mEq/L (3.5-5.1)
[2019-04-01] MEDS: *HR* Heparin 5,000 UNIT/ML VIAL SQ SCH ×3 (06:08→21:20)
[2019-04-01] MEDS ORDERED: Potassium Chloride Elixir 20 MEQ/15 ML UDC PO ONE (07:46)
[2019-04-01] MEDS: Lactulose Oral Soln 20 GM/30 ML UDC PO SCH ×2 (08:17→21:17)
[2019-04-01] MEDS: Vitamin B Complex/Vit C/Vit E 1 EACH TABLET PO SCH (08:18)
[2019-04-01] MEDS: Cholecalciferol (D-3) 1,000 UNIT (25MCG) TABLET PO SCH (08:18)
[2019-04-01] MEDS: rOPINIRole 0.25 MG TABLET PO SCH ×3 (08:18→21:17)
[2019-04-01] MEDS: Folic Acid 1 MG TABLET PO SCH (08:18)
[2019-04-01] MEDS: Thiamine (B-1) 100 MG TABLET PO SCH (08:18)
[2019-04-01] MEDS ORDERED: Furosemide 40 MG TABLET PO SCH (09:00)
[2019-04-01] MEDS: Topiramate 25 MG TABLET PO SCH (21:17)
[2019-04-02 04:33] LABS: Calcium 8.3 mg/dL (8.6-10.3); Potassium 3.5 mEq/L (3.5-5.1)
[2019-04-02] MEDS: *HR* Heparin 5,000 UNIT/ML VIAL SQ SCH (05:45)
[2019-04-02 06:50] VITALS: BP 98/67
[2019-04-02] MEDS: Vitamin B Complex/Vit C/Vit E 1 EACH TABLET PO SCH (09:45)
[2019-04-02] MEDS: Cholecalciferol (D-3) 1,000 UNIT (25MCG) TABLET PO SCH (09:45)
[2019-04-02] MEDS: Lactulose Oral Soln 20 GM/30 ML UDC PO SCH (09:45)
[2019-04-02] MEDS: Folic Acid 1 MG TABLET PO SCH (09:45)
[2019-04-02] MEDS: Thiamine (B-1) 100 MG TABLET PO SCH (09:45)
[2019-04-02] MEDS: rOPINIRole 0.25 MG TABLET PO SCH (09:46)
[2019-04-02] MEDS ORDERED: FLU Vac QV 19-20 (6Month+)/PF 0.5 ML SYRINGE IM ONE (10:30)
== END 2019-04-02 11:22 | DRG 432 ==
LOC: EMEROOARM 16:20 → 3ANU 16:20 → SUATTDRO 03-24 16:36
PROVIDERS: ADMIT Internal Medicine; ATTEND Internal Medicine

== ENCOUNTER 2019-04-21 13:38 | Inpatient (IN) ==
[2019-04-21 14:10] LABS: Basophils % 0.2 %; Eosinophils % 0.3 %; Hematocrit 29.4 % (35.3-44.9); Hemoglobin 10.1 g/dL (11.5-15.4); Immature Granulocytes % 0.4 % (0-4); Lymphocytes # 2.5 K/mcL (0.6-4.6); Lymphocytes % 22.5 %; Mean Corpuscular HGB Conc 34.4 g/dL (31.6-35.5); Mean Corpuscular Hemoglobin 32.1 pg (28.0-33.3); Mean Corpuscular Volume 93.3 fL (83.0-100.0); Mean Platelet Volume 13.2 fL (9.4-12.4); Monocytes # 0.6 K/mcL (0.0-1.3); Monocytes % 5.1 %; Neutrophils # 8.1 K/mcL (1.6-8.9); Platelet Count 153 K/mcL (140-400); Red Blood Count 3.15 M/mcL (3.82-4.97); Segmented Neutrophils % 71.5 %; White Blood Count 11.3 K/mcL (4.3-11.1)
[2019-04-21] MEDS ORDERED: 0.9 % Sodium Chloride 1,000 ML ONE (14:15)
[2019-04-21 14:20] LABS: Prothrombin Time 33.6 Seconds (9.4-12.1)
[2019-04-21 14:29] LABS: Platelet Estimate Normal (Normal)
[2019-04-21 14:38] LABS: Bilirubin,Urine Small (Negative); Blood,Urine Small (Negative); Clarity,Urine Turbid (Clear); Color,Urine Dark Yellow (Yellow); Glucose,Urine (UA) Normal (Normal); Ketones,Urine Negative (Negative); Leukocyte Esterase,Urine Large (Negative); Nitrite,Urine Negative (Negative); Protein,Urine 30 mg/dL (Neg-Trace); Specific Gravity,Urine 1.014 (1.010-1.025); Urobilinogen,Urine Normal (Normal)
[2019-04-21 14:40] LABS: Bacteria,Urine Many per hpf (None-Few); Hyaline Casts,Urine None Seen per lpf (None-Few); Squamous Epithelial Cell,Urine Many per lpf (None-Few); WBC,Urine TNTC per hpf (0-3)
[2019-04-21] MEDS ORDERED: Albumin 25% 12.5gm/50mL 12.5 GM/50 ML IV.SOLN IVPB ONE (14:46)
[2019-04-21] MEDS ORDERED: Piperacillin/Tazobactam 3.375 GM in 0.9 % Sodium Chloride Mini Bag 100 ML IVPB ONE (14:46)
[2019-04-21] MEDS ORDERED: Lactulose Oral Soln 20 GM/30 ML UDC PO ONE (14:56)
[2019-04-21 14:59] LABS: Troponin I < 0.03 ng/mL (< 0.04)
[2019-04-21 15:27] LABS: Amphetamine Screen,Urine Negative ng/mL (Cutoff=1000); Barbiturate Screen,Urine Negative ng/mL (Cutoff=200); Benzodiazepines Screen,Urine Negative ng/mL (Cutoff=200); Cannabinoid Screen,Urine Negative ng/mL (Cutoff = 50); Cocaine Screen,Urine Negative ng/mL (Cutoff= 300); Opiate Screen,Urine Negative ng/mL (Cutoff=300); Phencyclidine Screen,Urine Negative ng/mL (Cutoff=25)
[2019-04-21 15:36] LABS: Alanine Aminotransferase 36 Units/L (7-52); Albumin 2.1 g/dL (3.5-5.7); Albumin/Globulin Ratio 0.8 (1.1-2.2); Alkaline Phosphatase 152 Units/L (34-104); Aspartate Amino Transferase 75 Units/L (13-39); BUN/Creatinine Ratio 8 (6-26); Bilirubin,Direct 1.7 mg/dL (0.0-0.2); Bilirubin,Indirect 1.4 mg/dL (0.0-1.0); Bilirubin,Total 3.1 mg/dL (0.3-1.0); Blood Urea Nitrogen 36 mg/dL (8-23); Calcium 8.2 mg/dL (8.6-10.3); Carbon Dioxide 18 mEq/L (23-29); Chloride 106 mEq/L (98-107); Ethanol < 10 mg/dL (Less than 10); Globulin 2.7 g/dL (2.4-3.5); Glucose 86 mg/dL (70-105); Osmolality,Calculated 290 (280-300); Sodium 136 mEq/L (136-145); Total Protein 4.8 g/dL (6.4-8.9); eGFR For African Americans 11 (> 60); eGFR For Non-African Americans 9 (> 60)
[2019-04-21] MEDS ORDERED: Naloxone 0.4 MG/ML INJ IVP PRN (17:16)
[2019-04-21] MEDS ORDERED: Ondansetron 4 MG/2 ML VIAL IVP PRN (17:16)
[2019-04-21] MEDS ORDERED: Albumin 25% 25gram/100mL 25 GM/100 ML IV.SOLN IVPB ONE (18:19)
[2019-04-21] MEDS ORDERED: Topiramate 25 MG TABLET PO PRN (18:35)
[2019-04-21] MEDS: MethylPREDNISolone 40 MG/ML VIAL IVP SCH (20:55)
[2019-04-21] MEDS ORDERED: Lactulose Oral Soln 20 GM/30 ML UDC PO SCH ×2 (21:00)
[2019-04-21] MEDS: *HR* Heparin 5,000 UNIT/ML VIAL SQ SCH (21:02)
[2019-04-21] MEDS: rOPINIRole 0.25 MG TABLET PO SCH (22:10)
[2019-04-21] MEDS ORDERED: Lactulose 200 GM, Sodium Chloride IRRigation 700 ML RC ONE (22:49)
[2019-04-22] MEDS ORDERED: Piperacillin/Tazobactam 3.375 GM in 0.9 % Sodium Chloride Mini Bag 100 ML IVPB SCH
[2019-04-22 01:33] LABS: Basophils % 0.2 %; Eosinophils # 0.1 K/mcL (0.0-0.6); Eosinophils % 0.5 %; Hematocrit 26.7 % (35.3-44.9); Immature Granulocytes % 0.4 % (0-4); Lymphocytes # 1.4 K/mcL (0.6-4.6); Lymphocytes % 14.1 %; Mean Corpuscular HGB Conc 33.7 g/dL (31.6-35.5); Mean Corpuscular Hemoglobin 32.3 pg (28.0-33.3); Mean Corpuscular Volume 95.7 fL (83.0-100.0); Mean Platelet Volume 12.9 fL (9.4-12.4); Monocytes # 0.4 K/mcL (0.0-1.3); Monocytes % 4.1 %; Neutrophils # 7.7 K/mcL (1.6-8.9); Platelet Count 114 K/mcL (140-400); Red Blood Count 2.79 M/mcL (3.82-4.97); Red Cell Distribution Width 15.4 % (11.5-14.5); Segmented Neutrophils % 80.7 %; White Blood Count 9.6 K/mcL (4.3-11.1)
[2019-04-22 01:35] LABS: INR 3.6; Prothrombin Time 41.3 Seconds (9.4-12.1)
[2019-04-22 03:10] LABS: Albumin 2.5 g/dL (3.5-5.7); Bilirubin,Total 3.3 mg/dL (0.3-1.0); Calcium 8.1 mg/dL (8.6-10.3); Globulin 2.4 g/dL (2.4-3.5); Potassium 4.3 mEq/L (3.5-5.1); Total Protein 4.9 g/dL (6.4-8.9)
[2019-04-22] MEDS: *HR* Heparin 5,000 UNIT/ML VIAL SQ SCH ×2 (06:03→14:56)
[2019-04-22 06:56] LABS: Basophils % 0.1 %; Eosinophils % 0.1 %; Hematocrit 25.6 % (35.3-44.9); Hemoglobin 8.6 g/dL (11.5-15.4); Immature Granulocytes % 0.6 % (0-4); Lymphocytes # 1.1 K/mcL (0.6-4.6); Lymphocytes % 13.5 %; Mean Corpuscular HGB Conc 33.6 g/dL (31.6-35.5); Mean Corpuscular Volume 95.2 fL (83.0-100.0); Mean Platelet Volume 13.1 fL (9.4-12.4); Monocytes # 0.3 K/mcL (0.0-1.3); Monocytes % 3.8 %; Neutrophils # 6.7 K/mcL (1.6-8.9); Platelet Count 114 K/mcL (140-400); Red Blood Count 2.69 M/mcL (3.82-4.97); Red Cell Distribution Width 15.6 % (11.5-14.5); Segmented Neutrophils % 81.9 %; White Blood Count 8.1 K/mcL (4.3-11.1)
[2019-04-22 07:16] LABS: Potassium 4.2 mEq/L (3.5-5.1)
[2019-04-22] MEDS ORDERED: Vancomycin 1 EACH in 0.9 % Sodium Chloride 250 ML IVPB SCH (09:00)
[2019-04-22] MEDS: Gabapentin 300 MG CAPSULE PO SCH (10:59)
[2019-04-22] MEDS: rOPINIRole 0.25 MG TABLET PO SCH ×3 (10:59→19:44)
[2019-04-22] MEDS: MethylPREDNISolone 40 MG/ML VIAL IVP SCH (11:04)
[2019-04-22] MEDS: Piperacillin/Tazobactam 3.375 GM in 0.9 % Sodium Chloride Mini Bag 100 ML IVPB SCH ×2 (11:04→23:26)
[2019-04-23 07:08] LABS: Calcium 7.7 mg/dL (8.6-10.3); Potassium 4.6 mEq/L (3.5-5.1)
[2019-04-23] MEDS ORDERED: Aminoglycoside Consult 1 EACH MC ONE (08:05)
[2019-04-23] MEDS: Gabapentin 300 MG CAPSULE PO SCH (08:06)
[2019-04-23] MEDS: MethylPREDNISolone 40 MG/ML VIAL IVP SCH (08:06)
[2019-04-23] MEDS: rOPINIRole 0.25 MG TABLET PO SCH (08:06)
[2019-04-23] MEDS ORDERED: *HR* LORazepam 2 MG/ML VIAL IVP PRN (12:16)
[2019-04-24] MEDS ORDERED: Ertapenem 1,000 MG in 0.9 % Sodium Chloride Mini Bag 100 ML IVPB ONE (09:47)
[2019-04-24] MEDS ORDERED: Haloperidol Oral Conc 10 MG/5 ML UDC PO PRN (09:56)
[2019-04-24] MEDS ORDERED: *HR* LORazepam 2 MG/ML VIAL IVP PRN (09:57)
[2019-04-25] MEDS: Piperacillin/Tazobactam 3.375 GM in 0.9 % Sodium Chloride Mini Bag 100 ML IVPB SCH (03:27)
[2019-04-26 07:14] VITALS: BP 76/41
[2019-04-26] MEDS ORDERED: Atropine Sulfate 1% 40 DROP/2 ML BOTTLE SL PRN (10:36)
== END 2019-04-26 20:30 | disposition expired | DRG 871 ==
LOC: EMEROOARM 13:38 → 2ANU 13:38 → SUATTDRO 18:31 → 2ANU 18:54
PROVIDERS: ADMIT Internal Medicine; ATTEND Internal Medicine